=== PATIENT | male | born 1970 | race Asian ===

== ENCOUNTER → 2021-07-06 | Outpatient (CLI) | payer OTHER | LOC: MHCPAIN 13:30 | DX: M47.817 Spondylosis without myelopathy or radiculopathy, lumbosacral region (principal); M54.16 Radiculopathy, lumbar region; M79.18 Myalgia, other site | CPT/HCPCS: G0463 ==

== ENCOUNTER → 2021-07-25 | Outpatient (CLI) | payer OTHER | LOC: MHCPAIN 11:48 | DX: M47.816 Spondylosis without myelopathy or radiculopathy, lumbar region (principal); M79.18 Myalgia, other site; M54.16 Radiculopathy, lumbar region | CPT/HCPCS: J1040; J1100; Q9967 ==

== ENCOUNTER → 2021-09-04 | Outpatient (CLI) | payer OTHER | LOC: MHCPAIN 14:53 | DX: M47.817 Spondylosis without myelopathy or radiculopathy, lumbosacral region (principal); M53.3 Sacrococcygeal disorders, not elsewhere classified; M54.16 Radiculopathy, lumbar region; M79.18 Myalgia, other site | CPT/HCPCS: G0463 ==